=== PATIENT | male | born 1950 | race Caucasian/White ===

== ENCOUNTER 2018-07-07 16:17 | Inpatient (IN) | payer OTHER ==
[~2018-07-07] VITALS: Ht 185.4 cm; Wt 111.3 kg
--- NOTE | ~2018-07-07 | EKG ---
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
--- NOTE | ~2018-07-07 | EKG ---
[address] [address] ELECTROCARDIOGRAM REPORT Name: KIKE BOWEN Room #: 212- ADM IN M.R.#: [id number] Admission: 07/07/18 Attend Phys: Eulogio Gallo MD Discharge: Date of : 46 Report #: [id number] THIS REPORT FOR: //name// [facility] Test Date: 2018-07-13 Test Time: 10:11:26 Pat Name: KIKE BOWEN Department: Room: 212 P Gender: M Hand Twister: Ismael GUERRA : 1950 Requested By: Mary Beth Ramirez Order Number: [id number] MD: Ej Salas Measurements Intervals [place] Rate: 51 P: 45 [place]: 56 QRS: 72 QRSD: 169 T: 100 QT: 455 QTc: 420 Interpretive Statements Sinus rhythm with complete heart block Electronically Signed On 07-13-2018 14:48:22 BACK HAND by Ej Salas [email or web address] <ELECTRONICALLY SIGNED> By: Ej Salas MD 07/13/18 1448 1011 101 Ej Salas MD /THAI
--- NOTE | ~2018-07-07 | CATHLAB ---
[facility] [address] [place] [address] INVASIVE PROCEDURE REPORT Name: AARONMATTEOSTOKESDALY HOUSTON Room #: 212-P DIS IN ..#: [id number] Admission: 07/07/18 Attend Phys: Eulogio Gallo MD Discharge: 07/15/18 Date of : 46 Date of Service: 07/17/18 1041 Report #: [id number] THIS REPORT FOR: //name// APPROVED REPORT Study performed: 07/14/2018 12:45:06 Patient Status: In-Patient Room #: 212 Event Personnel: MD Muriel Yepez RN Shelly Click CVT, Monitor Luisa Brown, Scrub Exam: Insertion of Dual Chamber Permanent Pacemaker Indications: COMPLETE HEART BLOCK, Post NSTEMI Patient Info Last EF%: 45 Date: 07/02 NYHA Heart Class: I Conscious Sedation Anesthesia was used for procedure. Implanted Devices: St. Gary LV Generator: Model #[id number] Assurity; Serial # [id number] St. Gary TendrilLeads: Model # 2088TC/52; Serial # [id number] St. Gary TendrilLeads: Model # 2088TC/58; Serial # [id number] Procedure The patient underwent informed consent. We discussed the details of the procedure including the risks, which include, but not limited to bleeding, infection, vascular damage, cardiac perforation, and pneumothorax. He understood these risks and was willing to proceed. As such, he was brought to the EP/Cardiac Catheterization laboratory in a fasting and sedated state and prepped and draped in a sterile fashion, received IV antibiotics prior to initiation of the procedure and a venogram was performed showing patency of the left axillary vein. The patient underwent MAC anesthesia, with no anesthesia related complications. The patient was brought to the EP/Cardiac Catheterization laboratory and the left chest and shoulder were prepped and draped in a sterile manner. During this case, Fluoroscopy and low osmolar contrast were used for imaging. The left subclavian region was infiltrated with 2% Lidocaine subcutaneous anesthesia. A transverse incision was made in the left [address] [address] INVASIVE PROCEDURE REPORT Name: KIKE BOWEN [facility] Room #: 212-P DIS IN ..#: [id number] Admission: 07/07/18 Attend Phys: Eulogio Gallo MD Discharge: 07/15/18 Date of : 46 Date of Service: 07/17/18 1041 Report #: [id number] upper chest cavity. The subcutaneous pocket was formed via blunt dissection. Percutaneous venous access was achieved and an introducer sheath was inserted into the left Subclavian vein. Sheaths were positions using the modified Seldinger technique Through the introducer sheaths the atrial and ventricular lead wires were positioned in the right atrial appendage and right ventricular apex respectively. Capturing and sensing thresholds were verified. Electrode Parameters Atrial findings: P-wave 2.9 mV impedance 427 ohms threshold 1.24 pulse width 0.4 ms Ventricular findings: R-wave 5.5 mV impedance 531 ohms threshold 0.7 pulse width 0.5 ms Dual Chamber The atrial and ventricular leads were then secured using 2.0 ethibond sutures. The subcutaneous pocket was irrigated with vancomycin antibiotic solution.The atrial and ventricular leads were attached to the appropriate receptacles on the pulse generator and set screws firmly tightened to insure adequate contact and stability. The lead and pulse generator were placed into the subcutaneous pocket. Sharp and sponge counts were confirmed to be correct. At this time the pocket was closed subcutaneously with a 2O nonabsorbable suture and the skin was closed with a 3.0 Vicryl in a running subcuticular stitch. The operative site was dressed in sterile fashion with steri strips, 4 x 4, OpSite op site and the patient was transferred to the floor in stable condition. Complications The patient tolerated the procedure well and there were no complications associated with the procedure. Conclusion 1. Excisional insertion of a dual-chamber St. Gary pacemaker with active fixation leads Recommendations 1. Routine post pacemaker insertion protocol <ELECTRONICALLY SIGNED> By: Kade Winston MD 07/17/18 1041 1041 104 Kade Winston MD /INF
--- NOTE | ~2018-07-07 | EKG ---
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
--- NOTE | ~2018-07-07 | 2DMMODE ---
[facility] [address] [place] [address] 2 D/M-MODE ECHOCARDIOGRAM Name: AARONMATTEOSTOKES CELSO Room #: 212-P ADM IN .R.#: [id number] Admission: 07/07/18 Attend Phys: Eulogio Gallo MD Discharge: Date of : 46 Date of Service: 07/10/18 1323 Report #: [id number] THIS REPORT FOR: //name// APPROVED REPORT Study performed: 07/10/2018 10:27:54 EXAM: Comprehensive 2D, Doppler, and color-flow Echocardiogram Patient Location: In-Patient Room #: 212 Status: routine BSA: 2.35 HR: 87 bpm BP: 114/77 mmHg Rhythm: NSR Other Information Study Quality: Adequate Risk Factors: Cardiac Risk Factors: HTN, Hyperlipidemia Indications CAD Chest Pain 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#: [id number] Admission: 07/07/18 Attend Phys: Eulogio Gallo MD Discharge: Date of : 46 Date of Service: 07/10/18 1323 Report #: [id number] LVOT Max V: 0.99 m/s SHREYA Vmax: 2.74 cm2 Mitral Valve E/A Ratio: 0.8 MV Decel. Time: 263.90 ms MV E Max Poncho.: 0.90 m/s MV A Poncho.: 1.12 m/s MV PHT: 76.53 ms IVRT: 73.82 ms TDI E/Lateral E': 11.25 E/Medial E': 22.50 Medial E' Poncho.: 0.04 m/s Lateral E' Poncho.: 0.08 m/s Pulmonary Valve PV Peak Poncho.: 0.90 m/s PV Peak Gr.: 3.22 mmHg Pulmonary Vein P Vein S: 0.29 m/s P Vein A: 0.24 m/s P Vein D: 0.41 m/s P Vein A Dur.: 129.2 msec P Vein S/D Ratio: 0.71 Tricuspid Valve TR Peak Poncho.: 2.46 m/s RAP Estimate: 10.00 mmHg TR Peak Gr.: 24.19 mmHg PA Pressure: 34.00 mmHg Left Ventricle Left ventricle is mildly dilated. There is normal left ventricular wall thickness. Left ventricular systolic function is borderline. LVEF is 45%. Discordant septal motion, possibly from an intraventricular conduction delay. Hypokinesis of base of septum and inferior paige. Grade I - abnormal relaxation pattern. Right Ventricle Right ventricle is at the upper limits of normal. The right ventricular systolic function is normal. Atria Left atrium is borderline dilated. Right atrium is dilated. Aortic Valve The aortic valve is mildly calcified. No aortic regurgitation is present. There is no [place] [address] 2 D/M-MODE ECHOCARDIOGRAM Name: KIKE BOWEN CELSO Room #: 212-P [facility] IN .R.#: [id number] Admission: 07/07/18 Attend Phys: Eulogio Gallo MD Discharge: Date of : 46 Date of Service: 07/10/18 1323 Report #: [id number] Mitral Valve There is mild mitral annular calcification. Trace mitral regurgitation. No evidence of mitral valve stenosis. Tricuspid Valve The tricuspid valve is normal in structure. Mild tricuspid regurgitation. Pulmonary artery pressure is 34 mmHg. Pulmonic Valve The pulmonary valve is normal in structure. Mild pulmonic regurgitation. Great Vessels The aortic root is normal in size. IVC is mildly dilated and collapses <50% with inspiration. Pericardium There is no pericardial effusion. <Conclusion> Left ventricular systolic function is borderline. LVEF is 45%. Discordant septal motion, possibly from an intraventricular conduction delay. Hypokinesis of base of septum and inferior paige. Both atria are borderline dilated. The aortic valve is mildly calcified. No aortic valvular stenosis or insufficiency There is mild mitral annular calcification. Trace mitral regurgitation. Mild tricuspid regurgitation. Pulmonary artery pressure of 34 mmHg. There is no pericardial effusion. <ELECTRONICALLY SIGNED> By: Jayden Pace MD, FACC 07/10/18 132 22 22 Jayden Pace MD, FACC /INF
--- NOTE | ~2018-07-07 | EKG ---
[address] [place] [address] ELECTROCARDIOGRAM REPORT Name: AARONCURTIS BLACKMANDALY HOUSTON Room #: 212-P ADM IN M.R.#: [id number] Admission: 07/07/18 Attend Phys: Eulogio Gallo MD Discharge: Date of : 46 Report #: [id number] THIS REPORT FOR: //name// [facility] Test Date: 2018-07-10 Test Time: 10:10:43 Pat Name: KIKE BOWEN Department: Room: 212 P Gender: M Vp Publisher Development: ROSEANN : 1950 Requested By: Mary Beth Ramirez Order Number: [id number] MD: Jayden Pace Measurements Intervals [place] Rate: 61 P: 61 [place]: QRS: -17 QRSD: 165 T: 48 QT: 471 QTc: 475 Interpretive Statements Sinus rhythm Second deg AVB, Mobitz I (Wenckebach) Right bundle branch block Borderline ST depression, lateral leads Baseline wander in lead(s) V2 Compared to ECG 07/08/2018 09:43:13 Mobitz type I heart block is now present Electronically Signed On 07-11-2018 8:43:27 MEDICARE BILLER by Jayden Pace [email or web address] <ELECTRONICALLY SIGNED> By: Jayden Pace MD, FACC 07/11/18 0843 1010 1010 Jayden Pace MD, FACC /EPI
--- NOTE | ~2018-07-07 | EKG ---
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: ASCENCION : 1950 Requested By: Mary Beth Ramirez Order Number: [id number] MD: Kade Winston Measurements Intervals [place] Rate: 63 P: 37 [place]: 188 QRS: -30 QRSD: 159 T: 102 QT: 439 QTc: 450 Interpretive Statements Sinus rhythm Right bundle branch block Inferior infarct, old Baseline wander in lead(s) V6 No previous ECG available for comparison Electronically Signed On 07-09-2018 23:24:57 RIBBON WINDER by Kade Winston [email or web address] <ELECTRONICALLY SIGNED> By: Kade Winston MD 07/09/18 2324 0943 0943 Kade Winston MD /EPI
--- NOTE | ~2018-07-07 | CATHLAB ---
[facility] [address] [address] INVASIVE PROCEDURE REPORT Name: KIKE BOWEN Room #: 212-P [facility] IN M.R.#: [id number] Admission: 07/07/18 Attend Phys: Eulogio Gallo MD Discharge: Date of : 46 Date of Service: 07/11/18 1125 Report #: [id number] THIS REPORT FOR: //name// APPROVED REPORT Study performed: 07/10/2018 13:55:14 Patient Details Patient Status: In-Patient Room #: The patient is a 68 year-old male Event Personnel Kade Winston Spud Driller, Ministerio Muñoz RN RN, Walter Lobo, Clementina Sandhu Scrub Procedures Performed Left Heart Cath Coronaries, Bypass Grafts [id number] [facility] Supravalvular Aortography Injection [id number] ISVA supervision of conscious sedation Indication Non-STEMI , Chest pain Procedure Narrative The Right Groin^ was infiltrated with 1% Lidocaine subcutaneous anesthesia. A PINNACLE 4FR Sheath #[id number] sheath was inserted into the RFA^. Coronary angiography was performed using coronary diagnostic catheters. The right coronary system was accessed and visualized with a JR4 catheter. The left coronary system was accessed and visualized with a JL4 catheter. The left ventricle was accessed and visualized with a PIGTAIL catheter. Left ventricular/Aortic Valve gradient assessed via catheter pullback. An aortogram of the ascending aorta was performed. Hemostasis was obtained with manual pressure following sheath removal without any complications. The patient tolerated the procedure well and there were no complications associated with the procedure. There was no hematoma. Intraoperative Conscious Sedation Sedation start time: 14.32 Case end Time: 15.07 Versed 2 mg Fluoro Time: 8.05 minutes Dose: DAP 09714 cGycm2 1112 mGy Contrast Type and Amount: Omnipaque 130 ml [facility] [place] [address] INVASIVE PROCEDURE REPORT Name: KIKE BOWEN CELSO Room #: 212-P [facility] IN ..#: [id number] Admission: 07/07/18 Attend Phys: Eulogio Gallo MD Discharge: Date of : 46 Date of Service: 07/11/18 1125 Report #: [id number] [place] Artery Percent Stenosis Grafts (Complete if Previous CABG=Yes: Percent Stenosis) Saphenous vein graft to the left circumflex system was identified with only luminal irregularities noted. The anastomosis is a moderate lesion which fills antegrade and retrograde to the origin of the marginal branch. At this point time is a high-grade lesion and a 180 bend in which point in time the circumflex proper is noted in the AV groove filling. There is a 50% lesion in the proximal to the anastomosis of this reverse saphenous vein graft with diffuse proximal disease of the circumflex Left internal mammary graft is identified poorly visualized due to a unusual takeoff but is free of high-grade disease as it anastomosis to the mid LAD. There is a 50% anastomotic lesion noted. Which does not appear to be flow-limiting into the mid LAD. The LAD is a type III vessel and is described below Aortogram was performed 2 to identify any remaining grafts of which none were noted. In the anterior aspect superiorly there is a out pocketing which was visualized with fluoroscopy and did not have a patent graft. Diagnostic Cath Left Main Large-caliber of normal origin which rapidly tapers to 99% stenosis distally. It gives rise to a left anterior descending left circumflex and ramus intermedius remnants LAD Proximally totally occluded. The mid and distal portion of this type III LAD is fed via ROLON graft. Luminal irregularities are noted but no high-grade obstructive lesions Circumflex Proximal circumflex is occluded and ran the first marginal branch fills via reverse saphenous vein graft. Luminal irregularities are noted beyond the anastomosis. Proximal to the anastomosis as described above OM1 Moderate caliber vessel free of high-grade disease beyond the saphenous vein graft. Proximally the saphenous vein graft this 50% lesion until its origin which appears to be 99% stenosed Right Coronary Unable to be visualized with multiple probing and with aortic cusp injections R PDA Not visualized Left Ventriculography Left Ventriculography was not performed. Hemodynamics The aortic pressure is 129/61 mmHg with a mean of 88 mmHg. The left ventricular pressure is 132/12 mmHg with a mean of mmHg. The left ventricular end diastolic pressure is 28 mmHg. There was no gradient [facility] [address] [place] [address] INVASIVE PROCEDURE REPORT Name: JESSISTOKESDALY HOUSTON Room #: 212-P ADM IN M.R.#: [id number] Admission: 07/07/18 Attend Phys: Eulogio Gallo MD Discharge: Date of : 46 Date of Service: 07/11/18 1125 Report #: [id number] across the aortic valve upon pullback. Pullback from the left ventricle to the aorta revealed no gradient across the aortic valve. Conclusion 1. Coronary artery disease severe multivessel with patent ROLON graft to the LAD and SVG to the first OM 2. Abnormal hemodynamics elevated left ventricular end-diastolic pressures Recommendations Cardiac Risk Reduction Program Aggressive Medical Therapy <ELECTRONICALLY SIGNED> By: Kade Winston MD 07/11/18 1125 1125 112 Kade Winston MD /INF
[2018-07-07 16:22] VITALS: BP 144/77
[2018-07-07] MEDS ORDERED: LISINOPRIL10 MG PO (16:44)
[2018-07-07] MEDS ORDERED: CELEXA40 MG PO (16:44)
[2018-07-07] MEDS ORDERED: AMLODIPINE BESY10 MG PO (16:44)
[2018-07-07] MEDS ORDERED: LISINOPRIL-HCT1 EAC2 PO (16:45)
[2018-07-07] MEDS ORDERED: ASPIR 8181 MG PO (16:45)
[2018-07-07 16:48] LABS: ABSOLUTE NEUTROPHILS 8.4 thou/uL (1.4-8.2); BASOPHILS 0.6 % (0.0-2.0); EOSINOPHILS 0.8 % (0.0-3.0); HEMATOCRIT 44.5 % (42.0-52.0); HEMOGLOBIN 14.9 gm/dL (14.0-18.0); LYMPHOCYTES 15.1 % (24.0-44.0); MCH 27.3 pg (26.0-34.0); MCHC 33.5 g/dL (28.0-37.0); MCV 81.6 fL (80.0-100.0); MONOCYTES 9.2 % (1.0-8.0); PLATELET COUNT 229 thou/uL (150-400); POLYS 74.3 % (36.0-66.0); RBC 5.46 mil/uL (4.50-6.00); RDW 14.8 % (10.5-14.5); WBC 11.3 thou/uL (4.0-11.0)
[2018-07-07] MEDS ORDERED: LIPITOR80 MG PO (16:49)
[2018-07-07] MEDS ORDERED: FISH OIL 1,001000 M2 PO (16:53)
[2018-07-07] MEDS ORDERED: TOPROL XL25 MG PO (16:53)
[2018-07-07] MEDS ORDERED: ALLOPURINOL 10100 M1 PO (16:53)
[2018-07-07] MEDS ORDERED: CALCIUM 600 +1 EAC1 PO (16:54)
[2018-07-07] MEDS ORDERED: NAMENDA 10 MG T10 MG PO (16:54)
[2018-07-07 16:56] LABS: CREATININE 1.1 mg/dL (0.7-1.3); POTASSIUM 3.4 mmol/L (3.5-5.1)
[2018-07-07 17:08] LABS: TROPONIN-I 0.8 ng/mL (<0.06)
[2018-07-07 17:41] LABS: PROTIME 10.7 Seconds (9.3-11.4)
[2018-07-07 18:03] VITALS: BP 90/45
[2018-07-07 18:18] VITALS: BP 119/68
[2018-07-07 20:00] VITALS: BP 136/65
[2018-07-08 00:07] VITALS: BP 119/62
[2018-07-08 03:10] VITALS: BP 115/63
[2018-07-08 04:50] LABS: HEMATOCRIT 41.3 % (42.0-52.0); HEMOGLOBIN 13.5 gm/dL (14.0-18.0); MCH 26.7 pg (26.0-34.0); MCHC 32.8 g/dL (28.0-37.0); MCV 81.5 fL (80.0-100.0); RBC 5.07 mil/uL (4.50-6.00); WBC 8.7 thou/uL (4.0-11.0)
[2018-07-08 04:53] LABS: CALCIUM 8.7 mg/dL (8.5-10.1); POTASSIUM 3.4 mmol/L (3.5-5.1)
[2018-07-08 08:51] VITALS: BP 109/58
[2018-07-08 12:18] VITALS: BP 114/58
[2018-07-08 16:21] VITALS: BP 135/75
[2018-07-08 19:32] VITALS: BP 110/63
[2018-07-09 04:17] VITALS: BP 117/47
[2018-07-09 07:57] VITALS: BP 148/75
[2018-07-09 11:51] VITALS: BP 115/67
[2018-07-09 15:40] VITALS: BP 113/68
[2018-07-09 20:40] VITALS: BP 123/72
[2018-07-10 06:10] VITALS: BP 134/79
[2018-07-10 08:25] VITALS: BP 114/77
[2018-07-10 11:20] VITALS: BP 120/73
[2018-07-10 15:42] VITALS: BP 136/68
[2018-07-10 17:30] VITALS: BP 142/68
[2018-07-10 19:50] VITALS: BP 131/62
[2018-07-11 04:27] VITALS: BP 136/69
[2018-07-11 05:42] LABS: HEMATOCRIT 37.8 % (42.0-52.0); HEMOGLOBIN 12.2 gm/dL (14.0-18.0); MCH 26.8 pg (26.0-34.0); MCHC 32.3 g/dL (28.0-37.0); MCV 82.7 fL (80.0-100.0); RBC 4.56 mil/uL (4.50-6.00); RDW 15.3 % (10.5-14.5); WBC 9.1 thou/uL (4.0-11.0)
[2018-07-11 05:50] LABS: CALCIUM 8.9 mg/dL (8.5-10.1)
[2018-07-11 08:30] VITALS: BP 133/62
[2018-07-11 13:14] VITALS: BP 132/60
[2018-07-11 20:30] VITALS: BP 132/57
[2018-07-12 04:45] VITALS: BP 147/80
[2018-07-12 07:50] VITALS: BP 150/74
[2018-07-12 11:50] VITALS: BP 119/68
[2018-07-12 14:48] VITALS: BP 108/76
[2018-07-12 21:11] VITALS: BP 151/93
[2018-07-13 04:23] VITALS: BP 173/99
[2018-07-13 08:00] VITALS: BP 143/92
[2018-07-13 10:19] LABS: HEMATOCRIT 38.3 % (42.0-52.0); HEMOGLOBIN 12.5 gm/dL (14.0-18.0); MCH 26.9 pg (26.0-34.0); MCHC 32.7 g/dL (28.0-37.0); MCV 82.3 fL (80.0-100.0); RBC 4.66 mil/uL (4.50-6.00); RDW 14.9 % (10.5-14.5); WBC 6.9 thou/uL (4.0-11.0)
[2018-07-13 10:28] LABS: CALCIUM 9.4 mg/dL (8.5-10.1); MAGNESIUM 2.2 mg/dL (1.8-2.4); POTASSIUM 3.6 mmol/L (3.5-5.1)
[2018-07-13 12:34] VITALS: BP 126/78
[2018-07-13 16:00] VITALS: BP 147/75
[2018-07-13 20:30] VITALS: BP 149/72
[2018-07-14 04:35] VITALS: BP 167/87
[2018-07-14 08:18] VITALS: BP 148/77
[2018-07-14 11:42] VITALS: BP 144/78
[2018-07-14] MEDS ORDERED: IMDUR 30 MG TAB30 M1 PO (16:33)
[2018-07-14] MEDS ORDERED: RANEXA500 MG PO (16:33)
[2018-07-14] MEDS ORDERED: LISINOPRIL20 MG PO (16:34)
[2018-07-14] MEDS ORDERED: PLAVIX 75 MG TA75 M1 PO (16:34)
[2018-07-14 16:40] VITALS: BP 174/104
[2018-07-14 20:45] VITALS: BP 162/83
[2018-07-15 01:17] VITALS: BP 171/73
[2018-07-15 04:54] VITALS: BP 155/76
[2018-07-15 04:56] LABS: ABSOLUTE NEUTROPHILS 5.3 thou/uL (1.4-8.2); BASOPHILS 0.3 % (0.0-2.0); EOSINOPHILS 1.7 % (0.0-3.0); HEMOGLOBIN 13.2 gm/dL (14.0-18.0); LYMPHOCYTES 15.2 % (24.0-44.0); MCH 26.9 pg (26.0-34.0); MCV 81.6 fL (80.0-100.0); MONOCYTES 8.4 % (1.0-8.0); PLATELET COUNT 247 thou/uL (150-400); POLYS 74.4 % (36.0-66.0); RDW 14.6 % (10.5-14.5); WBC 7.2 thou/uL (4.0-11.0)
[2018-07-15 05:04] LABS: CALCIUM 9.1 mg/dL (8.5-10.1); POTASSIUM 3.8 mmol/L (3.5-5.1)
[2018-07-15 08:36] VITALS: BP 184/79
[2018-07-15 11:37] VITALS: BP 151/78
[2018-07-15 13:16] VITALS: BP 151/78
== END 2018-07-15 13:34 | disposition home or self-care (01) | DRG 242 ==
LOC: ER 16:17 → 2N 17:41 → EROBS 17:41 → 2N 18:41
PROVIDERS: Hospitalist; Internal Medicine; Physician Assistant
PROC: B3101ZZ Fluoroscopy of Thoracic Aorta using Low Osmolar Contrast (ICD-10-PCS; principal; 2018-07-10)
PROC: B2181ZZ Fluoroscopy of Left Internal Mammary Bypass Graft using Low Osmolar Contrast (ICD-10-PCS; principal; 2018-07-10)
PROC: B2111ZZ Fluoroscopy of Multiple Coronary Arteries using Low Osmolar Contrast (ICD-10-PCS; principal; 2018-07-10)
PROC: 4A023N7 Measurement of Cardiac Sampling and Pressure, Left Heart, Percutaneous Approach (ICD-10-PCS; principal; 2018-07-10)
PROC: 02H63JZ Insertion of Pacemaker Lead into Right Atrium, Percutaneous Approach (ICD-10-PCS; 2018-07-14)
PROC: 02HK3JZ Insertion of Pacemaker Lead into Right Ventricle, Percutaneous Approach (ICD-10-PCS; 2018-07-14)
PROC: 0JH606Z Insertion of Pacemaker, Dual Chamber into Chest Subcutaneous Tissue and Fascia, Open Approach (ICD-10-PCS; 2018-07-14)
PROC: B51N1ZZ Fluoroscopy of Left Upper Extremity Veins using Low Osmolar Contrast (ICD-10-PCS; 2018-07-14)
DX: I21.4 Non-ST elevation (NSTEMI) myocardial infarction (principal); I50.33 Acute on chronic diastolic (congestive) heart failure; I44.2 Atrioventricular block, complete; I95.9 Hypotension, unspecified; I45.10 Unspecified right bundle-branch block; I25.10 Atherosclerotic heart disease of native coronary artery without angina pectoris; I11.0 Hypertensive heart disease with heart failure; E78.5 Hyperlipidemia, unspecified; Z82.49 Family history of ischemic heart disease and other diseases of the circulatory system; Z83.3 Family history of diabetes mellitus; Z95.1 Presence of aortocoronary bypass graft; Z79.82 Long term (current) use of aspirin; Z79.899 Other long term (current) drug therapy
CPT/HCPCS: 10081; 62110; 62900; 70005